=== PATIENT | male | born 1990 | race American Indian/Alaskan Native ===

== ENCOUNTER 2019-01-25 10:16 | Emergency (ER) | payer BC ==
[2019-01-25 10:32] VITALS: BP 129/87
[2019-01-25] MEDS ORDERED: TRIPLE ANTIBIOTIC TP ONE (10:55)
[2019-01-25] MEDS ORDERED: BOOSTRIX IM ONE (10:55)
[2019-01-25] MEDS ORDERED: XYLOCAINE 1%/ EPI 1:100,000 INFILTRATI ONE (10:55)
[2019-01-25] MEDS ORDERED: NACL 0.9% IR ONE (10:55)
[2019-01-25] MEDS ORDERED: IBUPROFEN PO ONE (10:55)
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
== END 2019-01-25 11:55 | disposition home or self-care (01) ==
LOC: ED 10:16
DX: S01.112A Laceration without foreign body of left eyelid and periocular area, initial encounter (principal); S00.93XA Contusion of unspecified part of head, initial encounter; Y08.89XA Assault by other specified means, initial encounter; Y93.89 Activity, other specified; Y92.89 Other specified places as the place of occurrence of the external cause; Y99.8 Other external cause status
CPT/HCPCS: 90471; 90715; 99282; A6250

== ENCOUNTER 2019-02-02 02:32 | Emergency (ER) | payer BC ==
[2019-02-02 02:41] VITALS: BP 104/66
--- NOTE | 2019-02-02 02:44 | Emergency Department Report ---
Suture/Staple Removal - [facility] Chief Complaint: Laceration/Recheck/Suture Stated Complaint: SUTURE REMOVAL Time Seen by Provider: 02/02/19 02:44 When Sutures or Wilson Placed: 5-7 Days Ago Wound Location: left eyebrow ED Review of Systems ROS: Stated complaint: SUTURE REMOVAL Other details as noted in HPI Constitutional: denies: chills, fever Eyes: denies: eye pain, eye discharge, vision change ENT: denies: ear pain, throat pain Respiratory: denies: cough, shortness of breath, wheezing Cardiovascular: denies: chest pain, palpitations Endocrine: no symptoms reported Gastrointestinal: denies: abdominal pain, nausea, diarrhea Genitourinary: denies: urgency, dysuria Musculoskeletal: denies: back pain, joint swelling, arthralgia Skin: denies: rash, lesions Neurological: denies: headache, weakness, paresthesias Psychiatric: denies: anxiety, depression Hematological/Lymphatic: denies: easy bleeding, easy bruising ED Past Medical Hx - Past Medical History Previous Medical History?: No - Surgical History Past Surgical History?: No - Social History Smoking Status: Never Smoker Substance Use Type: None Suture Removal Exam - Exam General: Vital signs noted. No distress. Alert and acting appropriately. Wound: No Pathologic Erythema, No Tenderness, No Drainage, No Pus, No Wound Dehiscence Other Systems: All other systems reviewed and are unremarkable. ED Course Vital Signs 02/02/19 02:40 Temperature 98.4 F Pulse Rate 66 Respiratory 16 Rate Blood Pressure 104/66 O2 Sat by Pulse 100 Oximetry - Reevaluation(s) Reevaluation #1: 02/02/19 03:57 Patient is speaking in full sentences with no signs of distress noted. ED Recheck MDM - Medical Decision Making This is a 28-year-old male that presents with suture removal. She is stable and was examined by me. Total of 6 sutures has been removed and patient tolerated well. No signs of wound dehiscence, drainage, or cellulitis. Patient was referred to Follow-up with a primary care doctor in 3-5 days or if symptoms worsen and continue return to emergency room as soon as possible. At time of discharge, the patient does not seem toxic or ill in appearance. No acute signs of distress noted. Patient agrees to discharge treatment plan of care. No further questions noted by the patient. Critical care attestation.: If time is entered above; I have spent that time in minutes in the direct care of this critically ill patient, excluding procedure time. ED Disposition Clinical Impression: Visit for suture removal Disposition: -01 TO HOME OR SELFCARE Is pt being admited?: No Does the pt Need Aspirin: No Condition: Stable Instructions: Suture Removal (ED) Additional Instructions: Follow-up with a primary care doctor in 3-5 days or if symptoms worsen and continue return to emergency room as soon as possible. Referrals: PRIMARY CARE, [Referring] - 3-5 Days
== END 2019-02-02 04:11 | disposition home or self-care (01) ==
LOC: ED 02:32
DX: S01.112D Laceration without foreign body of left eyelid and periocular area, subsequent encounter (principal); X58.XXXD Exposure to other specified factors, subsequent encounter